=== PATIENT | female | born 1960 | race Caucasian/White ===

== ENCOUNTER 2017-06-21 11:45 | Outpatient (CLI) | payer OTHER ==
--- NOTE | 2017-06-21 14:04 | XRay Report ---
LEFT ANKLE, 3 views: History: left ankle injury. Overlying bandage generates artifact. Bone mineralization is normal. No acute osseous abnormality or joint pathology is identified. The soft tissues are unremarkable. IMPRESSION: Normal study.
== END 2017-06-21 11:46 | disposition home or self-care (01) ==
LOC: XRAY 11:45
PROVIDERS: ATTEND Internal Medicine
DX: S99.912A Unspecified injury of left ankle, initial encounter (principal); G56.00 Carpal tunnel syndrome, unspecified upper limb; X58.XXXA Exposure to other specified factors, initial encounter; Y93.89 Activity, other specified; Y92.89 Other specified places as the place of occurrence of the external cause; Y99.8 Other external cause status

== ENCOUNTER 2017-10-17 12:41 | Emergency (ER) | payer OTHER ==
[2017-10-17 12:53] VITALS: BP 132/87
[2017-10-17] MEDS ORDERED: MOTRIN PO ONE (14:00)
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
--- NOTE | 2017-10-17 15:25 | XRay Report ---
LEFT FOREARM: History: Fall, injury AP and lateral views of the forearm demonstrate normal mineralization and contours for this patient's age. No destructive changes are noted and the adjacent soft tissues are normal. IMPRESSION: Normal left forearm.
[2017-10-17] MEDS ORDERED: TRIPLE ANTIBIOTIC TP ONE (16:10)
== END 2017-10-17 16:53 | disposition home or self-care (01) ==
LOC: ED 12:41
DX: S00.83XA Contusion of other part of head, initial encounter (principal); S06.0X1A Concussion with loss of consciousness of 30 minutes or less, initial encounter; S70.312A Abrasion, left thigh, initial encounter; M79.632 Pain in left forearm; Z91.040 Latex allergy status; Z88.0 Allergy status to penicillin; V19.9XXA Pedal cyclist (driver) (passenger) injured in unspecified traffic accident, initial encounter; Y93.I9 Activity, other involving external motion; Y99.8 Other external cause status; Y92.410 Unspecified street and highway as the place of occurrence of the external cause
CPT/HCPCS: 70450